=== PATIENT | female | born 1945 | race Caucasian/White ===

== ENCOUNTER → 2020-03-04 10:18 | Outpatient (BNVA) | payer MEDICARE, SELFPAY | PROVIDERS: PCP Nurse Practitioner Family; Referring Provider Nurse Practitioner Family; Visit Provider Internal Medicine Endocrinology, Diabetes & Metabolism | DX: Z13.89 Encounter for screening for other disorder (principal) | CPT/HCPCS: Q3014 ==

== ENCOUNTER → 2020-07-08 11:30 | Outpatient (BNVA) | payer MEDICARE, SELFPAY | PROVIDERS: PCP Nurse Practitioner Family; Visit Provider Internal Medicine Endocrinology, Diabetes & Metabolism | DX: E05.20 Thyrotoxicosis with toxic multinodular goiter without thyrotoxic crisis or storm (principal); M81.0 Age-related osteoporosis without current pathological fracture; Z79.899 Other long term (current) drug therapy | CPT/HCPCS: 99212 ==

== ENCOUNTER 2020-07-08 12:19 | Outpatient (REF) | payer MEDICARE, SELFPAY ==
[2020-07-08 14:46] LABS: Alanine Aminotransferase 14 U/L (0-31); Albumin Level 4.3 g/dL (3.5-5.0); Alkaline Phosphatase 78 U/L (39-117); Anion Gap 13 (12-20); Aspartate Amino Transferase 16 U/L (5-31); Bilirubin Total 0.7 mg/dL (0.0-1.0); Blood Urea Nitrogen 20 mg/dL (9-16); Calcium 10.1 mg/dL (8.4-10.2); Carbon Dioxide 27 mmol/L (22-29); Chloride 106 mmol/L (96-108); Estimated Glomerular Filt Rate 59; Glucose Random 92 mg/dL (60-115); Potassium 4.9 mmol/L (3.3-5.1); Sodium 141 mmol/L (135-145); Total Protein 6.7 g/dL (6.5-8.0)
[2020-07-08 14:59] LABS: Free T4 (Free Thyroxine) 1.11 ng/dL (0.71-1.85); Thyroid Stimulating Hormone 0.03 uIU/mL (0.32-4.0)
[2020-07-09 08:51] LABS: Triiodothyronine T3 Total 124 ng/dL (76-181)
== END 2020-07-08 12:20 | disposition home or self-care (01) ==
LOC: HO.10HDL 12:19
PROVIDERS: Visit Provider Internal Medicine Endocrinology, Diabetes & Metabolism
DX: E05.20 Thyrotoxicosis with toxic multinodular goiter without thyrotoxic crisis or storm (principal)
CPT/HCPCS: 36415; 80053; 84439; 84443; 84480; 99212

== ENCOUNTER 2020-08-13 09:12 | Outpatient (REF) | payer MEDICARE, SELFPAY ==
[2020-08-13 11:13] LABS: Albumin Level 4.2 g/dL (3.5-5.0); Calcium 9.9 mg/dL (8.4-10.2)
[2020-08-13 11:43] LABS: Free T4 (Free Thyroxine) 0.83 ng/dL (0.71-1.85); Thyroid Stimulating Hormone 0.57 uIU/mL (0.32-4.0); Vitamin D 25-OH Total 49.6 ng/mL (>30)
[2020-08-15 00:26] LABS: Triiodothyronine T3 Total 98 ng/dL (76-181)
[2020-08-18 00:12] LABS: N-Telopeptide 36 (see note); NTXCreaRU 179 mg/dL (20-275)
== END 2020-08-13 09:13 | disposition home or self-care (01) ==
LOC: HO.10HDL 09:12
PROVIDERS: Visit Provider Internal Medicine Endocrinology, Diabetes & Metabolism
DX: E05.20 Thyrotoxicosis with toxic multinodular goiter without thyrotoxic crisis or storm (principal)
CPT/HCPCS: 36415; 82040; 82306; 82310; 82523; 84439; 84443; 84480

== ENCOUNTER 2020-09-12 11:15 | Outpatient (REF) | payer MEDICARE, SELFPAY ==
[2020-09-12 13:53] LABS: Albumin Level 4.1 g/dL (3.5-5.0); Calcium 9.5 mg/dL (8.4-10.2)
[2020-09-12 14:21] LABS: Free T4 (Free Thyroxine) 0.77 ng/dL (0.71-1.85); Thyroid Stimulating Hormone 1.67 uIU/mL (0.32-4.0); Vitamin D 25-OH Total 44.8 ng/mL (>30)
[2020-09-13 19:51] LABS: Triiodothyronine T3 Total 94 ng/dL (76-181)
[2020-09-16 09:32] LABS: Calcium (PTHI) 9.3 mg/dL (8.6-10.4); PTHI 29 pg/mL (14-64)
[2020-09-18 07:32] LABS: N-Telopeptide 29 (see note); NTXCreaRU 160 mg/dL (20-275)
== END 2020-09-12 11:16 | disposition home or self-care (01) ==
LOC: HO.10HDL 11:15
PROVIDERS: Visit Provider Internal Medicine Endocrinology, Diabetes & Metabolism
DX: M81.0 Age-related osteoporosis without current pathological fracture (principal); E05.20 Thyrotoxicosis with toxic multinodular goiter without thyrotoxic crisis or storm; I10 Essential (primary) hypertension; I48.91 Unspecified atrial fibrillation; Z79.899 Other long term (current) drug therapy; Z79.01 Long term (current) use of anticoagulants
CPT/HCPCS: 36415; 82040; 82306; 82310; 82523; 83970; 84439; 84443; 84480; 99212

== ENCOUNTER 2020-11-05 10:41 | Outpatient (REF) | payer MEDICARE, SELFPAY ==
--- NOTE | ~2020-11-05 | MM_ITS ---
EXAMINATION: BONE DENSITOMETRY CLINICAL INDICATION: Thyrotoxicosis with toxic multinodular goiter. COMPARISON: Baseline BD dated 11/25/2017. TECHNIQUE: Using a [employer] DXA System (software version: 13.1) manufactured by [employer], dual-energy x-ray absorptiometry was performed of the lumbar spine, left hip, and left forearm radius 33%. The images are of good technical quality. Summary results are attached. FINDINGS: AP SPINE L1-L4 (excluding L3): The data of L1-L4 has been changed to exclude the L3 vertebral body, because degenerative changes at this level may cause overestimation of lumbar spine density. Current: BMD 1.151 g/cm2, Z-score 1.6, T-score -0.2, normal, 19.6% increase from baseline (<5% change is not significant). Baseline: BMD 0.962 g/cm2. LEFT FEMUR, NECK: Current: BMD 0.631 g/cm2, Z-score -1.0, T-score -2.9, osteoporosis. Baseline: BMD 0.609 g/cm2. LEFT FEMUR, TOTAL: Current: BMD 0.614 g/cm2, Z-score -1.4, T-score -3.1, osteoporosis, 9.3% increase from baseline (<5% change is not significant). Baseline: BMD 0.562 g/cm2. LEFT FOREARM RADIUS 33%: BMD 0.431 g/cm2, Z-score -2.9, T-score -5.1, osteoporosis, 15.5% increase from baseline (<5% change is not significant). Baseline: BMD 0.373 g/cm2. IDENTIFIED RISK FACTORS: Early menopause, hyperparathyroid, hyperthyroid, osteoporosis, secondary osteoporosis. HISTORY OF FRACTURE: None listed. MEDICATIONS: Calcium, vitamin D. MM/XR DEXA appendicular skeleton IMPRESSION: 1. DIAGNOSIS: Osteoporosis based on the lowest T-score value of -5.1 in the forearm radius 33% applying World Health Organization criteria. 2. 10-YEAR FRACTURE RISK PREDICTION, FRAX: Major osteoporotic fracture (clinical spine, forearm, hip or shoulder) 19.9%. Hip fracture 7.4%. 3. Treatment Recommendations: NOF guidelines recommend consideration for treatment in postmenopausal women and men age 50 and older presenting with the following: -A hip or vertebral (clinical or morphometric) fracture. -T-score less than or equal to -2.5 at the femoral neck or spine after appropriate evaluation to exclude secondary causes. -Low bone mass at the hip or spine and a 10-year fracture probability by FRAX of greater than or equal to 3% for hip fracture or greater than or equal to 20% for major osteoporotic fracture based on the [place] adapted WHO algorithm. 4. Other Recommendations: All treatment decisions require clinical judgment and consideration of individual patient factors, including patient preferences, comorbidities, previous drug use, risk factors not captured in the FRAX model (e.g. frailty, falls, vitamin D deficiency, increased bone turnover, interval significant decline in bone density) and possible under or overestimation of fracture risk by FRAX. Additional medical evaluation for secondary cause of low bone mineral density may be appropriate. FUTURE SCAN RECOMMENDATION: People with diagnosed cases of osteoporosis or at high risk for fracture should have regular bone mineral density tests. For patients eligible for Medicare, routine testing is allowed once every 2 years. The testing frequency can be increased to one year for patients who have rapidly progressing disease, those who are receiving or discontinuing medical therapy to restore bone mass, or have additional risk factors.
== END 2020-11-05 10:42 | disposition home or self-care (01) ==
LOC: HO.MAMMO 10:41
PROVIDERS: Visit Provider Internal Medicine Endocrinology, Diabetes & Metabolism
DX: M81.0 Age-related osteoporosis without current pathological fracture (principal); E05.20 Thyrotoxicosis with toxic multinodular goiter without thyrotoxic crisis or storm
CPT/HCPCS: 77081

== ENCOUNTER 2022-11-12 10:28 | Outpatient (REF) | payer MEDICARE, SELFPAY ==
--- NOTE | ~2022-11-12 | MM_ITS ---
EXAMINATION: BONE DENSITOMETRY CLINICAL INDICATION: Osteoporosis. COMPARISON: Previous BD dated 11/05/2020 and baseline BD dated 11/25/2017. TECHNIQUE: Using a [employer] DXA System (software version: 13.1) manufactured by [employer], dual-energy x-ray absorptiometry was performed of the lumbar spine, left hip and left forearm radius 33%. The images are of good technical quality. Summary results are attached. FINDINGS: LEFT FEMUR, NECK: Current: BMD 0.599 g/cm2, Z-score -1.1, T-score -3.2, osteoporosis. Prior: BMD 0.631 g/cm2. Baseline: BMD 0.609 g/cm2. LEFT FEMUR, TOTAL: Current: BMD 0.596 g/cm2, Z-score -1.3, T-score -3.3, osteoporosis, 2.9% decrease from previous, 6.0% increase from baseline (<5% change is not significant). Prior: BMD 0.614 g/cm2. Baseline: BMD 0.562 g/cm2. AP SPINE L1-L4 (excluding L3): The data of L1-L4 has been changed to exclude the L3 vertebral body, because degenerative sclerosis at this level may cause overestimation of lumbar spine density. Current: BMD 1.158 g/cm2, Z-score 1.8, T-score -0.1, normal, 0.6% increase from previous, 20.4% increase from baseline (<5% change is not significant). Prior: BMD 1.151 g/cm2. Baseline: BMD 0.962 g/cm2. LEFT FOREARM RADIUS 33%: BMD 0.436 g/cm2, Z-score -2.6, T-score -5.0, osteoporosis, 1.2% increase from previous, 16.9% increase from baseline (<5% change is not significant). Prior: BMD 0.431 g/cm2. Baseline: BMD 0.373 g/cm2. IDENTIFIED RISK FACTORS: Early menopause, secondary osteoporosis, hyperparathyroidism, osteoporosis. HISTORY OF FRACTURE: None listed. MEDICATIONS: Calcium supplements or multivitamin, vitamin D. MM/XR DEXA appendicular skeleton IMPRESSION: 1. DIAGNOSIS: Osteoporosis based on the lowest T-score value of -5.0 in the forearm radius 33% applying World Health Organization criteria. 2. 10-YEAR FRACTURE RISK PREDICTION, FRAX: According to the guidelines, FRAX calculation should only be performed on patients in the osteopenia bone density category. Therefore, FRAX was not performed on this patient. 3. Treatment Recommendations: NOF guidelines recommend consideration for treatment in postmenopausal women and men age 50 and older presenting with the following: -A hip or vertebral (clinical or morphometric) fracture. -T-score less than or equal to -2.5 at the femoral neck or spine after appropriate evaluation to exclude secondary causes. -Low bone mass at the hip or spine and a 10-year fracture probability by FRAX of greater than or equal to 3% for hip fracture or greater than or equal to 20% for major osteoporotic fracture based on the [place] adapted WHO algorithm. 4. Other Recommendations: All treatment decisions require clinical judgment and consideration of individual patient factors, including patient preferences, comorbidities, previous drug use, risk factors not captured in the FRAX model (e.g. frailty, falls, vitamin D deficiency, increased bone turnover, interval significant decline in bone density) and possible under or overestimation of fracture risk by FRAX. Additional medical evaluation for secondary cause of low bone mineral density may be appropriate. FUTURE SCAN RECOMMENDATION: People with diagnosed cases of osteoporosis or at high risk for fracture should have regular bone mineral density tests. For patients eligible for Medicare, routine testing is allowed once every 2 years. The testing frequency can be increased to one year for patients who have rapidly progressing disease, those who are receiving or discontinuing medical therapy to restore bone mass, or have additional risk factors.
== END 2022-11-12 10:29 | disposition home or self-care (01) ==
LOC: HO.MAMMO 10:28
PROVIDERS: PCP Nurse Practitioner Primary Care; Visit Provider Nurse Practitioner Primary Care
DX: Z13.820 Encounter for screening for osteoporosis (principal); M81.0 Age-related osteoporosis without current pathological fracture; Z78.0 Asymptomatic menopausal state
CPT/HCPCS: 77081

== ENCOUNTER → 2022-11-12 11:00 | Outpatient (BNV) | payer MEDICARE, SELFPAY | PROVIDERS: PCP Nurse Practitioner Primary Care; Visit Provider Radiology Diagnostic Radiology | DX: M85.89 Other specified disorders of bone density and structure, multiple sites (principal) | CPT/HCPCS: 77080; 77081 ==